=== PATIENT | male | born 1940 | race Caucasian/White ===

== ENCOUNTER 2022-08-20 09:31 | Day surgery (SDC) | payer MEDICARE ==
[2022-08-20] MEDS ORDERED: Depo-Medrol 40 MG/ML IM ONE (09:32)
[2022-08-20] MEDS ORDERED: Marcaine Mpf 0.5% Vial 30 Ml IJ ONE (09:32)
[2022-08-20] MEDS ORDERED: DIPRIVAN 200 MG/20 ML IV ONE (11:20)
[2022-08-20] MEDS ORDERED: Lactated Ringers 1,000 ML IV ONE (12:26)
--- NOTE | 2022-08-20 12:45 | XRAY ---
Indication: Right knee genicular nerve block. Intraoperative fluoroscopy provided for 16 seconds. 4 digital spot image submitted for interpretation demonstrates anterior needle tips projecting medial/lateral supracondylar and medial tibia plateau. Correlate with intraoperative findings/report.
--- NOTE | 2022-08-20 12:46 | XRAY ---
Indication: Left knee genicular nerve block. Intraoperative fluoroscopy provided for 16 seconds. 2 digital spot image submitted for interpretation demonstrates anterior needle tips projecting medial/lateral supracondylar and medial tibia plateau. Correlate with intraoperative findings/report.
--- NOTE | 2022-08-20 14:25 | XRAY ---
12 seconds fluoroscopy time in surgery for left genicular nerve block.
--- NOTE | 2022-08-20 14:25 | XRAY ---
16 seconds fluoroscopy time in surgery for right genicular nerve block.
== END 2022-08-20 11:55 | disposition home or self-care (01) ==
LOC: SDC-PAIN 09:31
PROVIDERS: ATTEND Psychiatry & Neurology Pain Medicine
DX: M17.0 Bilateral primary osteoarthritis of knee (principal); E11.9 Type 2 diabetes mellitus without complications; Z79.899 Other long term (current) drug therapy
CPT/HCPCS: 64454; 73560; 77002; 82947; J1030; J2704

== ENCOUNTER 2022-10-01 08:39 | Day surgery (SDC) | payer MEDICARE ==
[2022-10-01] MEDS ORDERED: Depo-Medrol 40 MG/ML IM ONE (08:40)
[2022-10-01] MEDS ORDERED: Xylocaine 1% Vial 30 ML PF IJ ONE (08:40)
[2022-10-01] MEDS ORDERED: SYNVISC 16 MG/2 ML SYRINGE IU ONE (08:40)
[2022-10-01] MEDS ORDERED: BUPIVACAINE 0.5% VIAL IJ ONE (08:40)
[2022-10-01] MEDS ORDERED: Lactated Ringers 1,000 ML IV ONE (10:28)
[2022-10-01] MEDS ORDERED: DIPRIVAN 200 MG/20 ML IV ONE (12:33)
--- NOTE | 2022-10-01 19:58 | XRAY ---
Indication: Left knee genicular nerve ablation. Intraoperative fluoroscopy provided for 28 seconds. 6 digital spot images left knee submitted for interpretation demonstrates anterior needle tips projecting medial/lateral supracondylar and medial tibial plateau. Correlate with intraoperative findings/report.
--- NOTE | 2022-10-01 19:58 | XRAY ---
Indication: Right knee injection. Intraoperative fluoroscopy provided for 10 seconds. 3 digital spot image submitted for interpretation demonstrates needle tip projecting over the right femur interchondral notch. Small amount of contrast injected for needle tip placement. Correlate with intraoperative findings/report.
--- NOTE | 2022-10-01 20:02 | XRAY ---
28 seconds of fluoroscopy was used in surgery for a left knee genicular nerve ablation.
--- NOTE | 2022-10-01 20:03 | XRAY ---
10 seconds of fluoroscopy was used in surgery for a right knee intra-articular injection.
== END 2022-10-01 13:05 | disposition home or self-care (01) ==
LOC: SDC-PAIN 08:39
PROVIDERS: ATTEND Psychiatry & Neurology Pain Medicine
DX: M17.0 Bilateral primary osteoarthritis of knee (principal); E11.9 Type 2 diabetes mellitus without complications; Z79.899 Other long term (current) drug therapy
CPT/HCPCS: 20610; 64624; 73560; 77002; 82947; J1030; J2001; J2704; J7325; Q9966

== ENCOUNTER 2022-10-22 08:35 | Day surgery (SDC) | payer MEDICARE ==
[2022-10-22] MEDS ORDERED: LIDOCAINE HCL 1% 50 MG/5 ML VL PF IJ ONE (08:36)
--- NOTE | 2022-10-22 10:44 | XRAY ---
Indication: Right knee injection. Intraoperative fluoroscopy provided for 8 seconds. Single digital spot image submitted for interpretation demonstrates needle tip projecting over the right femur intercondylar notch. Small amount of contrast injected for needle tip placement. Correlate with intraoperative findings/report.
--- NOTE | 2022-10-22 10:46 | XRAY ---
8 seconds of fluoroscopy was used for a right intra-articular knee injection.
== END 2022-10-22 10:45 | disposition home or self-care (01) ==
LOC: SDC-PAIN 08:35
PROVIDERS: ATTEND Psychiatry & Neurology Pain Medicine
DX: M17.11 Unilateral primary osteoarthritis, right knee (principal); E11.9 Type 2 diabetes mellitus without complications; Z79.899 Other long term (current) drug therapy
CPT/HCPCS: 20610; 73560; 77002; 82947; J2001; Q9966

== ENCOUNTER 2022-11-05 15:30 | Day surgery (SDC) | payer MEDICARE ==
[2022-11-05] MEDS ORDERED: SYNVISC 16 MG/2 ML SYRINGE IU ONE (15:31)
[2022-11-05] MEDS ORDERED: LIDOCAINE HCL 1% 50 MG/5 ML VL PF IJ ONE (15:31)
--- NOTE | 2022-11-05 20:57 | XRAY ---
Indication: Right knee injection. Intraoperative fluoroscopy provided for 6 seconds. Single digital spot image submitted for interpretation demonstrates needle tip projecting over the right femur intercondylar notch. Small amount of contrast injected for needle tip placement. Correlate with intraoperative findings/report.
--- NOTE | 2022-11-06 08:36 | XRAY ---
6 seconds of fluoroscopy was used in surgery for a right knee intra-articular injection.
== END 2022-11-05 18:50 | disposition home or self-care (01) ==
LOC: SDC-PAIN 15:30
PROVIDERS: ATTEND Psychiatry & Neurology Pain Medicine
DX: M17.11 Unilateral primary osteoarthritis, right knee (principal); E11.9 Type 2 diabetes mellitus without complications; Z79.899 Other long term (current) drug therapy
CPT/HCPCS: 20610; 73560; 77002; 82947; J2001; J7325; Q9966